=== PATIENT | male | born 1965 | race Caucasian/White ===

== ENCOUNTER → 2017-02-04 | Day surgery (SDC) | payer MEDICARE ==
[~2017-02-04] VITALS: Ht 180.3 cm; Wt 124.5 kg
[2017-02-04 07:32] LABS: HCT 47.8 % (42.0-52.0); HGB 16.9 g/dl (13.2-18.0); MCH 30.7 pg (25.0-31.0); MCHC 35.4 g/dL (32.0-36.0); MCV 86.9 fL (78.0-100.0); MPV 11.3 fL (6.0-9.5); RBC 5.5 M/uL (4.70-6.00); WBC 8.1 K/uL (4.0-10.5)
[2017-02-04 08:14] LABS: ALBUMIN 4.4 g/dL (3.5-5.0); CREATININE 0.7 mg/dL (0.7-1.2); POTASSIUM 4.7 mmol/L (3.5-5.1); TOTAL PROTEIN 7.4 g/dL (6.4-8.3)
== END | disposition home or self-care (01) ==
LOC: FAS 07:25
PROVIDERS: Surgery
DX: Z12.11 Encounter for screening for malignant neoplasm of colon (principal); K21.9 Gastro-esophageal reflux disease without esophagitis; E78.5 Hyperlipidemia, unspecified
CPT/HCPCS: G0121; 36415; 80053; J2405; J2704